=== PATIENT | male | born 1995 | race Caucasian/White ===

== ENCOUNTER 2017-09-25 19:13 | Emergency (ER) | payer OTHER, SELFPAY ==
[2017-09-25 19:14] VITALS: BP 121/57; PULSE 79; RESP 20; TEMP 36.6; O2SAT 97; BMI 30.2
--- NOTE | 2017-09-25 19:26 | RAD_ITS ---
STUDY: X-RAY - LUMBAR SPINE REASON FOR EXAM: Male, 22 years old. Lower back pain for 2 weeks. Unknown cause. TECHNIQUE: 3 view(s) of the lumbar spine were obtained. COMPARISON: CT of the abdomen and pelvis, April 10, 2016. FINDINGS: Normal lumbar lordosis. There is no substantial scoliosis. There is a normal alignment of the vertebrae. Normal vertebral bodies and endplates. Normal disc space heights. A bulging disc was previously noted at L5-S1. There is no evidence of acute fracture or loss of vertebral axial height. The soft tissue structures are unremarkable. RAD/Lumbar Spine 2 or 3 Views IMPRESSION: Normal x-ray examination of the lumbar spine. Electronically Signed: Theo Lai DO at 19:53 EDT Tel [phone], Service support ,
--- NOTE | 2017-09-25 19:28 | ED.DCSUM_ITS ---
- ER Visit Summary Date of Service: 09/25/17 Chief Complaint: Back pain History of Present Illness: The patient is a 22 M 2-week history of lower back pain. Pain radiates to his mid right thigh. No loss of bowel or bladder control. Unclear of any injuries, however he states he was lifting a car part 60-80 pounds a few days prior. No loss of bowel or bladder control. Pain worse with movement. No history of similar in the past. Using ibuprofen intermittently, however last time he states was less than 6 hours ago. Symptoms not improving. Has not called his PCP for follow-up or evaluation. History of bipolar, sick OCD, ADHD, Tourette's. Denies history of gastric ulcers or kidney injury. Physical Examination: General: Alert and oriented ?3, no acute distress HEENT: Normocephalic, atraumatic. Moist mucosa membranes Neck: supple, nontender. Cardiovascular: Regular rate and rhythm, no murmurs Respiratory: Normal breath sounds, symmetric, no distress Back: No midline tenderness or step-offs. Paralumbar tenderness around L3, straight leg test was negative. 2+ patellar reflex bilaterally. Abdomen: Soft, nontender, nondistended Extremities: Nontender, no edema, pulses intact ?4 Neuro: no focal neurological deficits. Test Results: Lumbar spine x-ray: No acute process Emergency Department Course and Treatment: Patient presents with sciatica symptoms. No cauda equina symptoms. Baseline x-ray obtained which was normal. The patient continue ibuprofen every 6 hours. Offered muscle relaxers if he like to try. discussed side effects, he would like to hold at this time. He will call his PCP for follow-up. All questions are answered. Treatment Plan: [] Disposition: Discharge Impression: Sciatica This note was generated with [employer] dictation software. It may contain incorrect words, spelling, and punctuation that were not noted in review of the chart prior to signing ED Disposition - Plan for ED Patient: Disposition: Home or Assisted Living Chief Complaint: Back Diagnosis: Sciatica of right side Instructions: ED Sciatica Prescriptions: Ibuprofen 600 mg PO 4X/DAY #30 tablet Referrals: Josue Gee MD [Primary Care Provider] - 3-5 Days
[2017-09-25 20:12] VITALS: PULSE 80; RESP 16; O2SAT 98
== END 2017-09-25 20:13 | disposition home or self-care (01) ==
PROVIDERS: Emergency Provider Emergency Medicine; Family Provider Pediatrics; PCP Pediatrics
DX: M54.41 Lumbago with sciatica, right side (principal); F31.9 Bipolar disorder, unspecified; F42.8 Other obsessive-compulsive disorder; F90.9 Attention-deficit hyperactivity disorder, unspecified type; F95.2 Tourette's disorder; Z72.0 Tobacco use; Z79.899 Other long term (current) drug therapy
CPT/HCPCS: 72100; 99282

== ENCOUNTER 2017-10-08 14:15 | Emergency (ER) | payer OTHER, SELFPAY ==
[2017-10-08 14:15] VITALS: BP 141/77; PULSE 99; RESP 16; TEMP 36.8; O2SAT 99; BMI 31.4
--- NOTE | 2017-10-08 15:03 | ED.VISSUMM ---
- ER Visit Summary Date of Service: 10/08/17 Chief Complaint: Evaluation of laceration repair Present Illness: The patient is a 22 M who is right-handed was seen at [facility] for a work-related injury. He sustained a laceration dorsal ulnar side of the left thumb. Mother and relatives who are in the healthcare profession are concerned if it was repaired properly . When asked to explain what the mean by proper, mother responded stitches inside . Mother was informed there is no way for me to determine that. Asked if any other concerns. They were concerned because they were told stitches out . He has had no drainage, redness, pain, paresthesia, anesthesia or motor weakness. Physical Examination: Vital signs are marked for an elevated blood pressure 141/77. Patient has a healing laceration without evidence of infection i.e. erythema, warmth, fluctuance, lymphangitis or lymphadenopathy. Extensor pollicis brevis and longus are intact. Sensation is intact. Capillary refill is normal. Test Results: None Emergency Department Course and Treatment: Wound care Treatment Plan: Home-going instructions for wound care Disposition: Discharge Impression: Evaluation of laceration left thumb This note was generated with [employer] dictation software. It may contain incorrect words, spelling, and punctuation that were not noted in review of the chart prior to signing ED Disposition - Plan for ED Patient: Disposition: Home or Assisted Living Chief Complaint: Laceration Instructions: ED Laceration Hand, ED Hypertension Poss Referrals: Josue Gee MD [Primary Care Provider] - Additional Instructions: 1. Clean wound with peroxide and Q-tip 3 times a day then apply bacitracin ointment. 2. Reji's blood pressure is elevated for a 22-year-old. He should have his blood pressure reassessed in 1-2 weeks.
--- NOTE | 2017-10-08 15:07 | ED.DCSUM_ITS ---
- ER Visit Summary Date of Service: 10/08/17 Chief Complaint: Evaluation of laceration repair Present Illness: The patient is a 22 M who is right-handed was seen at [facility] for a work-related injury. He sustained a laceration dorsal ulnar side of the left thumb. Mother and relatives who are in the healthcare profession are concerned if it was repaired properly . When asked to explain what the mean by proper, mother responded stitches inside . Mother was informed there is no way for me to determine that. Asked if any other concerns. They were concerned because they were told stitches out . He has had no drainage, redness, pain, paresthesia, anesthesia or motor weakness. Physical Examination: Vital signs are marked for an elevated blood pressure 141/ 77. Patient has a healing laceration without evidence of infection i.e. erythema, warmth, fluctuance, lymphangitis or lymphadenopathy. Extensor pollicis brevis and longus are intact. Sensation is intact. Capillary refill is normal. Test Results: None Emergency Department Course and Treatment: Wound care Treatment Plan: Home-going instructions for wound care Disposition: Discharge Impression: Evaluation of laceration left thumb This note was generated with [employer] dictation software. It may contain incorrect words, spelling, and punctuation that were not noted in review of the chart prior to signing ED Disposition - Plan for ED Patient: Disposition: Home or Assisted Living Chief Complaint: Laceration Instructions: ED Laceration Hand, ED Hypertension Poss Referrals: Josue Gee MD [Primary Care Provider] - Additional Instructions: 1. Clean wound with peroxide and Q-tip 3 times a day then apply bacitracin ointment. 2. Rjei's blood pressure is elevated for a 22-year-old. He should have his blood pressure reassessed in 1-2 weeks.
[2017-10-08 15:29] VITALS: BP 127/56; PULSE 72; RESP 16; O2SAT 98
== END 2017-10-08 15:30 | disposition home or self-care (01) ==
PROVIDERS: Emergency Provider Emergency Medicine; Family Provider Pediatrics; PCP Pediatrics
DX: S61.012D Laceration without foreign body of left thumb without damage to nail, subsequent encounter (principal); W26.9XXD Contact with unspecified sharp object(s), subsequent encounter
CPT/HCPCS: 99282

== ENCOUNTER → 2018-02-11 15:50 | Outpatient (CLI) | payer OTHER, SELFPAY | PROVIDERS: Family Provider Pediatrics; PCP Pediatrics; Referring Provider Otolaryngology; Visit Provider Otolaryngology | DX: H60.02 Abscess of left external ear (principal) | CPT/HCPCS: 87070; 87077; 87186; 87205 ==

== ENCOUNTER → 2020-11-29 | Outpatient (CLI) | payer OTHER, SELFPAY | END | disposition home or self-care (01) | PROVIDERS: PCP Pediatrics; Visit Provider Physician Assistant Surgical | DX: Z11.52 Encounter for screening for COVID-19 (principal) | CPT/HCPCS: 87635; U0005; U0003 ==

== ENCOUNTER 2020-12-19 17:20 | Outpatient (CLI) | payer OTHER, SELFPAY ==
[2020-12-19 17:40] VITALS: BP 132/67; PULSE 87; RESP 16; TEMP 37.2; O2SAT 97; BMI 30.5
[2020-12-19] MEDS: 0.9% Saline Lock 10 ML Syringe IV (17:45)
[2020-12-19 18:25] VITALS: BP 131/74; PULSE 77; RESP 16; TEMP 37; O2SAT 99
[2020-12-19 19:20] VITALS: BP 131/67; PULSE 78; RESP 16; TEMP 36.9; O2SAT 99
== END 2020-12-19 19:31 | disposition home or self-care (01) ==
LOC: ICUOUT 17:20 → MS3 17:22
PROVIDERS: PCP Pediatrics; Referring Provider Nurse Practitioner Adult Health; Visit Provider Nurse Practitioner Adult Health
DX: Z23 Encounter for immunization (principal); U07.1 COVID-19
CPT/HCPCS: J7050; M0243; A4216; Q0244

== ENCOUNTER → 2022-07-21 | Outpatient (CLI) | payer OTHER, SELFPAY ==
[2022-07-21 08:16] LABS: Cholesterol 175 mg/dL (200); Glucose 103 mg/dL (74-106); High Density Lipoprotein 51 mg/dL; Triglycerides 75 mg/dL; Very Low Density Lipoprotein 15 mg/dL (5-40)
== END | disposition home or self-care (01) ==
LOC: LAB 07:37
PROVIDERS: PCP Family Medicine; Referring Provider Family Medicine; Visit Provider Family Medicine
DX: Z00.00 Encounter for general adult medical examination without abnormal findings (principal)
CPT/HCPCS: 36415; 80061; 82947

== ENCOUNTER → 2023-06-26 | Outpatient (CLI) | payer OTHER, SELFPAY ==
[2023-06-26 11:17] LABS: Absolute Lymphocyte Count 1.73 X10^3/uL (0.83-4.51); Absolute Neutrophil Count 2.6 X10^3/uL (2.0-7.7); Basophil# 0.06 X10^3/uL; Basophil% 1.2 % (0-1); Eosinophil# 0.15 X10^3/uL; Hematocrit 44.5 % (40-54); Hemoglobin 15.1 g/dL (13.0-16.5); Lymphocyte # 1.73 X10^3/ul (0.83-4.51); Lymphocyte % 35.1 % (19-41); Mean Corp Hgb Conc 33.9 g/dL (32-36); Mean Corpuscular Hgb 29.4 pg (27.0-32.0); Mean Corpuscular Volume 86.6 fL (80-94); Mean Platelet Vol. 9.5 fl (6.2-12.0); Monocyte# 0.39 X10^3/uL; Monocyte% 7.9 % (0-10); NRBC Flagged by Analyzer 0 % (0-5); Neutrophil % 52.8 % (47-70); Platelet Count 266 K/mm3 (150-450); RBC Distribution Width CV 12.4 % (11.6-14.6); RBC Distribution Width SD 39.2 fl (35.1-43.9); Red Blood Count 5.14 M/mm3 (4.6-6.2); White Blood Count 4.9 K/mm3 (4.4-11.0)
[2023-06-26 11:35] LABS: Hemoglobin A1c 5.2 % (3.8-5.6)
[2023-06-26 12:11] LABS: ALB/GLOB Ratio 1.2 RATIO (0.9-2.4); AST(SGOT) 17 U/L (15-37); Alanine Aminotransfer ALT/SGPT 24 U/L (16-61); Albumin, Serum 4.2 g/dL (3.2-5.0); Alkaline Phosphatase 67 U/L (45-117); Anion Gap 4 (5-15); BUN 12 mg/dL (7-18); BUN/Creat Ratio 12.7 RATIO (10-20); Calcium,Total 9.4 mg/dL (8.5-10.1); Chloride 106 mmol/L (98-107); Cholesterol 187 mg/dL (200); Creatinine, Serum 0.95 mg/dL (0.70-1.30); EST Glomerular Filtration Rate 102 mL/min (>60); Est Glom Filt Rate - Afr Amer 124 mL/min (>60); Globulin 3.5 g/dL (2.2-4.2); Glucose 96 mg/dL (74-106); High Density Lipoprotein 43 mg/dL; Potassium 4.1 mmol/L (3.5-5.1); Prolactin 13.3 ng/mL; Protein, Total 7.7 g/dL (6.4-8.2); Sodium Level 137 mmol/L (136-145); Triglycerides 77 mg/dL; Very Low Density Lipoprotein 15 mg/dL (5-40)
== END | disposition home or self-care (01) ==
LOC: LAB 10:59
PROVIDERS: PCP Family Medicine; Visit Provider Registered Nurse
DX: F31.9 Bipolar disorder, unspecified (principal); Z79.899 Other long term (current) drug therapy
CPT/HCPCS: 36415; 80053; 80061; 82306; 83036; 84146; 85025